=== PATIENT | female | born 1985 | race Caucasian/White ===

== ENCOUNTER 2016-09-11 10:46 | Emergency (ER) | payer MEDICAID ==
[2016-09-11 11:42] LABS: BASOPHIL % 0.5 % (0-2); PLATELET COUNT 279 x10^3mcL (130-400); RED CELL DISTRIBUTION WIDTH 12.3 % (11.5-14.5)
[2016-09-11 11:52] LABS: CARBON DIOXIDE 24.8 mmol/L (21-32); CHLORIDE SERUM 104 mmol/L (98-107); CREATININE SERUM 0.4 mg/dL (0.6-1.0); GFR1 > 60 mL/min; GLUCOSE SERUM 94 mg/dL (74-106); POTASSIUM SERUM 3.8 mmol/L (3.5-5.1); SODIUM SERUM 138 mmol/L (136-145)
[2016-09-11 11:57] LABS: ALBUMIN 3.8 g/dL (3.4-5.0); ALKALINE PHOSPHATASE 78 U/L (46-116); ALT/SGPT 41 U/L (14-59); AST/SGOT 26 U/L (15-37); BILIRUBIN TOTAL 0.29 mg/dL (0.20-1.00); TOTAL PROTEIN, SERUM 7.7 g/dL (6.4-8.2)
[2016-09-11 13:01] VITALS: BP 131/74
== END 2016-09-11 13:01 | disposition home or self-care (01) ==
LOC: ED 10:46
PROVIDERS: Emergency Medicine
DX: G89.29 Other chronic pain (principal); R10.32 Left lower quadrant pain
CPT/HCPCS: J1885; Q0092

== ENCOUNTER 2017-02-21 20:56 | Emergency (ER) | payer MEDICAID ==
[2017-02-21 21:31] LABS: BASOPHIL % 0.4 % (0-2); PLATELET COUNT 232 x10^3mcL (130-400); RED CELL DISTRIBUTION WIDTH 12.8 % (11.5-14.5)
[2017-02-21] MEDS ORDERED: LOSARTAN POTASS25 M1 PO (21:33)
[2017-02-21] MEDS ORDERED: LIPI20 PO (21:34)
[2017-02-21 21:36] LABS: CALCIUM 8.1 mg/dL (8.5-10.1); CARBON DIOXIDE 28.3 mmol/L (21-32); CHLORIDE SERUM 104 mmol/L (98-107); CREATININE SERUM 0.5 mg/dL (0.6-1.0); GFR1 > 60 mL/min; GLUCOSE SERUM 100 mg/dL (74-106); POTASSIUM SERUM 3.5 mmol/L (3.5-5.1); SODIUM SERUM 141 mmol/L (136-145)
[2017-02-21] MEDS ORDERED: SULFAMETHOXAZOL1 TA3 PO (21:36)
[2017-02-21] MEDS ORDERED: METFORMIN HCL850 MG PO (21:37)
[2017-02-21] MEDS ORDERED: CLEOCIN HCL300 MG PO (21:37)
[2017-02-21] MEDS ORDERED: NOR10 PO (21:40)
[2017-02-21] MEDS ORDERED: LISINOPRIL10 MG PO (21:41)
[2017-02-21] MEDS ORDERED: DESCOVY 200-251 EACH PO (21:41)
[2017-02-21] MEDS ORDERED: PREZCOBIX1 TAB PO (21:42)
[2017-02-21 21:43] LABS: ALKALINE PHOSPHATASE 68 U/L (46-116); ALT/SGPT 27 U/L (14-59); AST/SGOT 15 U/L (15-37); BILIRUBIN TOTAL 0.4 mg/dL (0.20-1.00); TOTAL PROTEIN, SERUM 7.1 g/dL (6.4-8.2)
[2017-02-21] MEDS ORDERED: TAMSULOSIN HYD0.4 M1 PO (21:43)
[2017-02-21] MEDS ORDERED: GABAPENTIN100 M2 PO (21:43)
[2017-02-21 21:46] LABS: ALBUMIN 3.3 g/dL (3.4-5.0)
[2017-02-21 22:50] VITALS: BP 117/76
== END 2017-02-21 22:50 | disposition home or self-care (01) ==
LOC: ED 20:56
PROVIDERS: Emergency Medicine
DX: G89.18 Other acute postprocedural pain (principal); R10.11 Right upper quadrant pain
CPT/HCPCS: 36415; J3010; Q0092; Q0162

== ENCOUNTER 2018-03-30 10:21 | Emergency (ER) | payer MEDICAID ==
[~2018-03-30] VITALS: Ht 170.2 cm; Wt 82.1 kg
[~2018-03-30 10:21] MED LIST: CLEOCIN HCL300 MG PO; DESCOVY 200-251 EACH PO; GABAPENTIN100 M2 PO; LIPI20 PO; LISINOPRIL10 MG PO; LOSARTAN POTASS25 M1 PO; METFORMIN HCL850 MG PO; NOR10 PO; PREZCOBIX1 TAB PO; SULFAMETHOXAZOL1 TA3 PO; TAMSULOSIN HYD0.4 M1 PO
[2018-03-30 10:23] VITALS: Ht 170.2 cm; Wt 82.1 kg
[2018-03-30 12:43] VITALS: BP 133/78
== END 2018-03-30 12:43 | disposition home or self-care (01) ==
LOC: ED 10:21
DX: J40 Bronchitis, not specified as acute or chronic (principal)